=== PATIENT | female | born 1970 | race Caucasian/White ===

== ENCOUNTER 2025-01-11 07:46 | Day surgery (SDC) | payer OTHER ==
[~2025-01-11] VITALS: Ht 149.9 cm; Wt 62.2 kg
[~2025-01-11 07:46] MED LIST: ALPR.5 PO; AMLO5 PO; BCP; Budeprion Xl300 MG PO; CODACE30 PO; DOCU100 PO; ERYT500 PO; FAMO40 PO; FLUO10 PO; GLYMET1.25 PO; HYDACE5 PO; HYDROCODON-ACE1 EAC3 PO; L-METHYLFOLATE15 MG PO; LEVFLO250; Lactated Ringer's 1,000 ML IV ONE; Lamictal200 MG PO; MULVITMINE PO; NAPR500 PO; OMEP20ER; ONDA4ODT MM; ONDA4ODT SL; OXYACE5T PO; OXYC5 PO; PHENTERMINE PO; PROM25 PO; RXOXYACE PO; TRAM50 PO; TRAZ100; TRAZ50 PO; VENL150ER; ZOLP10 PO; ZOLP5 PO; [UNRECOGNIZED DRUG - OTHER]; propofoL 50 ML IV ONE
[2025-01-11] MEDS ORDERED: Lactated Ringer's 1,000 ML IV ONE (09:00)
[2025-01-11 10:34] VITALS: BP 101/62
== END 2025-01-11 10:39 | disposition home or self-care (01) ==
LOC: ORSCSDS 07:46
PROVIDERS: Surgery
PROC: 0DJD8ZZ Inspection of Lower Intestinal Tract, Via Natural or Artificial Opening Endoscopic (ICD-10-PCS; principal; 2025-01-11 09:15)
DX: Z12.11 Encounter for screening for malignant neoplasm of colon (principal); F41.9 Anxiety disorder, unspecified; F32.A Depression, unspecified; E78.5 Hyperlipidemia, unspecified; E03.9 Hypothyroidism, unspecified; E88.819 Insulin resistance, unspecified; Z79.899 Other long term (current) drug therapy
CPT/HCPCS: J2597; J2704; J7120

== ENCOUNTER 2025-10-24 11:33 | Day surgery (SDC) | payer OTHER ==
[~2025-10-24] VITALS: Ht 149.9 cm; Wt 60.8 kg
[~2025-10-24 11:33] MED LIST changes: +Balanced Salt Epinephrine Irrigation Solution 500 mL IR SCH; -Lactated Ringer's 1,000 ML IV ONE; +Moxifloxacin HCL 0.5 MG/0.1 ML 0.4MLSYR LEFTEYE SCH; +Ondansetron 4 MG SoluTab MM PRN; +PHENYLEPHRINE\\TROPICAMIDE\\TETRACAINE OPHTHALMIC DILATING SOLN LEFTEYE PRN; +Povidone-Iodine 450 DROP/30 ML Solution LEFTEYE SCH; +Povidone-Iodine 450 DROP/30 ML Solution ONE; +Tetracaine HCl/Pf 0.5% Opth Soln 4 ml ONE; +Triamcinolone Inj Susp 40 MG / ML 1ML Vial INJ SCH; +Triamcinolone Inj Susp 40 MG / ML 1ML Vial ONE; +diazePAM 2 MG,diazePAM 5 MG PO SCH; -propofoL 50 ML IV ONE
--- NOTE | 2025-10-24 11:52 | NUR ---
10/24/25 1152 CEM ROGER 10MG VALIUM 1X PO PER DR. LLANES @[id number]
[2025-10-24] MEDS ORDERED: PROGESTERONE (11:57)
--- NOTE | 2025-10-24 12:37 | NUR ---
10/24/25 1237 Marichuy Zhao 1231 BP:103/63 HR:64 O2:96% RESP:16
[2025-10-24 12:54] VITALS: BP 101/75
== END 2025-10-24 13:08 | disposition home or self-care (01) ==
LOC: ORSCSDS 11:33
PROVIDERS: Ophthalmology
PROC: 08RK3JZ Replacement of Left Lens with Synthetic Substitute, Percutaneous Approach (ICD-10-PCS; principal; 2025-10-24 13:00)
DX: H25.812 Combined forms of age-related cataract, left eye (principal); E78.5 Hyperlipidemia, unspecified; E03.9 Hypothyroidism, unspecified; F41.8 Other specified anxiety disorders; D68.00 Von Willebrand disease, unspecified; Z79.899 Other long term (current) drug therapy
CPT/HCPCS: A9270; J3301; V2632